=== PATIENT | male | born 1970 | race Caucasian/White ===

== ENCOUNTER → 2023-09-26 13:56 | Outpatient (REF) | payer BC, SELFPAY | LOC: RAD 13:56 | PROVIDERS: ATTENDING PHYSICIAN Physician Assistant Medical | DX: M54.50 Low back pain, unspecified (principal) | CPT/HCPCS: 76775 ==

== ENCOUNTER 2024-09-07 06:24 | Day surgery (SDC) | payer BC, SELFPAY | END 2024-09-07 10:33 | disposition home or self-care (01) | LOC: GI 06:24 | PROVIDERS: ATTENDING PHYSICIAN Internal Medicine | DX: Z12.11 Encounter for screening for malignant neoplasm of colon (principal); K64.4 Residual hemorrhoidal skin tags; K57.30 Diverticulosis of large intestine without perforation or abscess without bleeding; K64.8 Other hemorrhoids; D12.0 Benign neoplasm of cecum; D12.5 Benign neoplasm of sigmoid colon; D12.6 Benign neoplasm of colon, unspecified | CPT/HCPCS: 45385; 45380; 88305 ==

== ENCOUNTER → 2025-03-31 17:48 | Outpatient (REF) | payer BC, SELFPAY | LOC: RAD 17:48 | PROVIDERS: ATTENDING PHYSICIAN Student in an Organized Health Care Education/Training Program | DX: R19.7 Diarrhea, unspecified (principal); R10.30 Lower abdominal pain, unspecified; R35.0 Frequency of micturition | CPT/HCPCS: 74177; Q9967 ==